=== PATIENT | male | born 1965 | race Caucasian/White ===

== ENCOUNTER 2018-03-04 22:59 | Inpatient (IN) ==
[2018-03-05] MEDS ORDERED: Naloxone 0.4 MG/ML INJ IVP PRN (02:36)
[2018-03-05] MEDS ORDERED: *HR* Heparin 5,000 UNIT/ML VIAL IVP PRN (02:54)
[2018-03-05] MEDS ORDERED: *HR* Heparin 5,000 UNIT/ML VIAL IVP ONE (02:54)
--- NOTE | 2018-03-05 03:15 | Internal Med History&Physical ---
<Ric Mederos - Last Filed: 03/05/18 05:58> Date of Encounter: 03/05/18 Internal Medicine - H&P: HPI History of present illness: Mr. Ontiveros is a 52 year old male Internal Medicine - H&P: Meds Amlodipine Besylate 10 mg PO DAILY 09/15/17 [History] Aspirin 81 mg PO DAILY 09/15/17 [History] Atorvastatin [Lipitor] 40 mg PO HS 09/15/17 [History] Clopidogrel Bisulfate [Plavix] 75 mg PO DAILY #30 tablet 09/15/17 [Rx] Cyclobenzaprine HCl 10 mg PO HS 09/15/17 [History] Diltiazem CD (24hr) [Cardizem CD] 120 mg PO DAILY 09/15/17 [History] Ergocalciferol (VITAMIN D2) [Vitamin D2] 50,000 unit PO QWEEK 09/15/17 [History] Ezetimibe [Zetia] 10 mg PO DAILY 09/15/17 [History] Gabapentin [Neurontin] 300 mg PO BID 09/15/17 [History] Insulin DETEMIR [Levemir] 50 unit BID 09/15/17 [History] Insulin Lispro Protamin/Lispro [Humalog Mix 75-25 Vial] 50 unit SQ TIDWM 09/15/17 [History] Lisinopril [Zestril] 40 mg PO DAILY 09/15/17 [History] Meloxicam [Mobic] 15 mg PO DAILY 09/15/17 [History] Metformin HCl 1,000 mg PO BID 09/15/17 [History] hydrALAZINE [HydrALAZINE] 25 mg PO Q8HR 09/15/17 [History] Allergy/AdvReac Type Severity Reaction Status Date / Time No Known Allergies Allergy Verified 03/04/15 11:56 All Systems PM: A 10-system review of systems was performed and is negative for pertinent findings except as documented above in the HPI. - Constitutional Vitals: Temp Pulse Resp BP Pulse Ox 98.6 F 60 12 133/72 92 03/05/18 04:34 03/05/18 05:00 03/05/18 05:00 03/05/18 05:00 03/05/18 05:00 Internal Med - H&P Results - Labs CBC & Chem 7: 03/05/18 03:33 03/05/18 03:33 Labs: Short CBC 03/05/18 Range/Units 03:33 WBC 8.4 (4.3-11.1) K/mcL Hgb 15.2 (12.9-16.9) g/dL Hct 47.7 (37.5-50.1) % Plt Count 212 (140-400) K/mcL Neutrophils # 5.5 (1.6-8.9) K/mcL BMP 03/05/18 03:33 Sodium 136 Potassium 3.5 Chloride 100 Carbon Dioxide 26 BUN 12 Creatinine 0.56 L Glucose 238 H Calcium 9.6 Cardiac Enzymes 03/05/18 Range/Units 03:33 Troponin I 1.40 H* (< 0.04) ng/mL - Time Spent With Patient Total time spent is greater than 50% in coordination of care (as documented) at patient's floor/unit and/or counseling patient: - Attending Attestation I performed a history and physical examination of the patient and discussed the case with the resident. I reviewed the resident's note and agree with the documented findings and plan of care. <Tejas Garrison - Last Filed: 03/05/18 06:06> Date of Encounter: 03/05/18 Time of Encounter: 03:10 Internal Medicine - H&P: HPI Chief complaint: Chest pain Admitted From: Hospital to Hospital Transfer Plans for Post Hospital Care: Home History of present illness: Mr. Ontiveros is a 52 year old male with history of diabetes, hyperlipidemia, hy pertension, CAD status post stent in September 2017 who presents from [facility] [place] due to chest pain. 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 The pain was substernal in location and he described as a pressure. The pain was approximately 6/10 in intensity, and it was nonradiating. Nothing seemed to make the pain any better and nothing seemed to make the pain any worse. It was not exacerbated by exertion. It was not associated with any shortness of breath, diaphoresis, nausea or vomiting. He did have continuous pain for approximately 2 hours until he was able to receive a nitroglycerin from the ER and [place] at which time the pain subsided and has not returned. Significantly, the patient does have history of [place] requiring stent in 09/2017, however he says that this experience does not feel anything like that. He says at that time he did have hypertension, however not really have any chest pain at that time. His review of systems was otherwise negative. At this time his pain has completely resolved and he is resting comfortably. At [facility] [place], the patient did have labs which demonstrated serum sodium 138, potassium 4.1, chloride 100, bicarbonate 31, WN 13, serum creatinine 0.84, blood glucose 315. CBC demonstrated WBC 7.8, hemoglobin 15.2, hematocrit 48.4, platelets 200. He had an EKG which generally did not demonstrate any evidence of acute myocardial ischemia. Troponins were trended initially and were 0.09 followed by 0.54. He did have an elevated blood pressure with a systolic blood pressure greater than 200 and was placed on a Cardene drip along with a heparin drip for ACS, and the patient was transferred to the ICU at [place] for further workup and management. Social History: Patient lives with his and his 24-year-old son. 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 Denies tobacco abuse denies alcohol use denies drug use. He drinks 2 cups of coffee a day. He says that his diet is probably not as good as it should be and he denies exercising. Surgical History: Cholecystectomy, PCI Family History: Dad (D) DM, CVD/CABG. Mom (D) DM Past Med Surg Social Fam HX - Past Medical History Medical history: arthritis, diabetes, hyperlipidemia, hypertension Psychiatric history: no psych history - Past Surgical History Surgical History: cholecystectomy - Social History Smoking Status: Never smoker Smokeless Tobacco Status: No Alcohol use: none Drug use: none All Systems PM: A 10-system review of systems was performed and is negative for pertinent findings except as documented above in the HPI. Review of systems: Constitutional: Denies fevers, chills, weight loss, generalized fatigue Head/Neck: Denies PATRICIA, neck stiffness EENT: Denies vision changes/blurriness, rhinorrhea, congestion, sore throat CVS: Denies palpitations, MEIER, orthopnea, edema, PND. Admits to Chest pains as above Pulm: Denies SOB, cough, sputum, hemoptysis, wheezing GI: Denies abdominal pain, nausea, vomiting, diarrhea, constipation, melena, hematemasis : Denies dysuria, increased frequency, urgency, hematuria Heme: Denies ease of bleeding or bruising MSK: Denies joint pain, limited ROM Skin: Denies rashes, ulcers, color changes Neuro: Denies PATRICIA, paresthesias, focal deficits, ataxia - Constitutional Vitals: Temp Pulse Resp BP Pulse Ox 98.3 F 79 16 165/94 96 03/05/18 01:31 03/05/18 03:00 03/05/18 03:00 03/05/18 03:00 03/05/18 03:00 Exam: Gen: Vitals noted. No acute distress. Obese appearing man. Eyes: anicteric sclerae, moist conjunctivae; no lid-lag; Pupils equal and re active to light HENT: Atraumatic; oropharynx clear with moist mucous membranes and no mucosal ulcerations; normal hard and soft palate Neck: Trachea midline; supple, no thyromegaly or lymphadenopathy Cardiac: RRR, no murmur, +S1/S2 Pulmonary: CTA bilaterally, no wheezes, rales or rhonchi, equal chest expansion Abdomen: soft, nontender, no guarding. No masses or hepatosplenomegaly MSK: ROM intact, no joint swelling noted Extremities: no BLE edema, nontender calf, no cyanosis or clubbing. Skin: Normal temperature, turgor and texture; ulcers or subcutaneous nodules. There is no hair appearing on the patient's lower extremity and evidence of early stasis ulceration. Neuro: moves all extremities, no focal deficits. Psych: Appropriate mood and behavior. A&Ox3 Internal Med - H&P Results - Labs CBC & Chem 7: 03/05/18 03:33 03/05/18 03:33 - Assessment and plan (1) NSTEMI (non-ST elevated myocardial infarction) Current Visit: Yes Status: Acute Assessment and plan: Chest pain at rest, relieved by nitroglycerin Secondary to NSTEMI, HEART Score 6-7 Patient does have history of CAD status post PCI with stent 09/20 EKG negative for acute ischemic changes, troponin 0.09 -> 0.54 Additionally, patient presented with hypertensive urgency/emergency Given recent history of cardiac event, we will admit for ACS Patient received ASA and was started on heparin drip We will maintain NPO, repeat EKG in AM New TTE in AM Cardio consult in AM (2) CAD (coronary artery disease) Current Visit: Yes Status: Acute Assessment and plan: CAD s/p PCI with stent to L PDA 09/20 Multiple risk factors including HTN, Uncontrolled DM, HLD, Prior CAD Home meds meds include ASA, Lipitor, LELAND Inh, Plavix We will continue to aggressively control risk factors Consult cardiology as above Qualifiers: Coronary Disease-Associated Artery/Lesion type: [place] artery [place] vs. transplanted heart: [place] heart Associated angina: with unstable angina Qualified Code(s): I25.110 - Atherosclerotic heart disease of [place] coronary artery with unstable angina pectoris (3) Hypertensive urgency Current Visit: Yes Status: Acute Assessment and plan: Hypertensive urgency, SBP >220 at [place] Patient says that he is compliant with medications He does have small bump in troponin, which I suspect may be more related to cardiac ischemia We will continue cardene drip for now, goal SBP 140-160 (4) Diabetes Current Visit: Yes Status: Acute Assessment and plan: DM2 with hyperglycemia, poorly controlled jail use of high dose insulin, appears to have high insulin resistance I will start the patient on q6h accuchecks while NPO He takes 50u Long acting insulin BID at home, I will give 30U BID for now Medium dose sliding scale insulin q6h Qualifiers: Diabetes mellitus type: type 2 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
[2018-03-05] MEDS ORDERED: D5% in Water 1,000 ML IVC PRN (03:16)
[2018-03-05] MEDS ORDERED: Dextrose Gel 15 GM/37.5 ML TUBE PO PRN ×2 (03:16)
[2018-03-05] MEDS ORDERED: *HR* Dextrose 50 % in Water (Syg) 50 ML SYRINGE IVP PRN (03:16)
[2018-03-05 04:02] LABS: Basophils % 0.4 %; Eosinophils # 0.2 K/mcL (0.0-0.6); Eosinophils % 2.4 %; Hematocrit 47.7 % (37.5-50.1); Hemoglobin 15.2 g/dL (12.9-16.9); Immature Granulocytes % 0.2 % (0-4); Lymphocytes % 24.3 %; Mean Corpuscular HGB Conc 31.9 g/dL (31.6-35.5); Mean Corpuscular Hemoglobin 25.3 pg (28.0-33.3); Mean Corpuscular Volume 79.4 fL (83.0-100.0); Mean Platelet Volume 12.3 fL (9.4-12.4); Monocytes # 0.6 K/mcL (0.0-1.3); Monocytes % 7.1 %; Neutrophils # 5.5 K/mcL (1.6-8.9); Platelet Count 212 K/mcL (140-400); Red Blood Count 6.01 M/mcL (4.19-5.50); Red Cell Distribution Width 15.3 % (11.5-14.5); Segmented Neutrophils % 65.6 %
[2018-03-05 04:10] LABS: Prothrombin Time 11.3 Seconds (9.4-12.1)
[2018-03-05 04:14] LABS: BUN/Creatinine Ratio 21 (6-26); Blood Urea Nitrogen 12 mg/dL (6-20); Calcium 9.6 mg/dL (8.6-10.3); Carbon Dioxide 26 mEq/L (23-29); Chloride 100 mEq/L (98-107); Chol/HDL Ratio 2.9 (0-4.9); Cholesterol 112 mg/dL (< 200); Glucose 238 mg/dL (70-105); HDL Cholesterol 39 mg/dL (40-59); LDL Cholesterol,Calculated 31 mg/dL (0-99); Magnesium 1.4 mg/dL (1.6-2.6); Osmolality,Calculated 290 (280-300); Potassium 3.5 mEq/L (3.5-5.1); Sodium 136 mEq/L (136-145); Triglycerides 212 mg/dL (< 150); eGFR For Non-African Americans > 60 (> 60)
[2018-03-05] MEDS: niCARdipine 40 MG/200 ML MLS IVC SCH ×2 (04:28→12:10)
[2018-03-05] MEDS: Heparin 25,000 UNIT/500 ML D5W 25,000 UNIT/500 ML BAG IVC SCH ×2 (04:30→18:57)
[2018-03-05] MEDS ORDERED: Insulin LISPRO 300 UNITS/3 ML VIAL SQ SCH ×2 (06:00)
[2018-03-05] MEDS: hydrALAZINE 25 MG TABLET PO SCH ×3 (06:03→20:58)
[2018-03-05] MEDS ORDERED: Perflutren Lipid Microsphere 1.3 ML in 0.9 % Sodium Chloride 8.7 ML IVP ONE (07:23)
[2018-03-05 07:24] LABS: Estimated Average Glucose 235 mg/dl; Hemoglobin A1C 9.8 %
--- NOTE | 2018-03-05 08:14 | Cardiology Consult Note ---
<Junaid Galarza - Last Filed: 03/05/18 08:54> Date of Encounter: 03/05/18 Time of Encounter: 08:15 Assessment and Plan (1) Hypertensive urgency Current Visit: Yes Status: Acute Per Cardiology: Systolic blood pressures in the 180s initially. Currently on IV Cardene drip and systolic blood pressures in the 140s. On Norvasc and Cardizem, not sure why on two calcium channel blockers, will discontinue Cardizem and add Lopressor 50 mg by mouth twice a day. Also on LELAND inhibitor and hydralazine. Will attempt to wean off IV Cardene drip. (2) NSTEMI (non-ST elevated myocardial infarction) Current Visit: Yes Status: Acute Per Cardiology: Known history of CAD with catheterization September 2017: Lesion Findings/Interventions * Left Main Coronary Artery The LMCA is angiographically free of disease. * Left Anterior Descending There is a 20-30% stenosis in the Proximal LAD, mid LAD 40-50% * Circumflex There is a 20% stenosis in the 1st Marginal. There is a 28 mm long, 80-90% stenosis in the Left PDA. The lesion has a KEYANNA flow of 3. An intervention was performed on the Left PDA with a final stenosis of 0%. There were no lesion complications. The final KEYANNA flow was 3. * Right Coronary Artery The Right Coronary Artery is small and diffusely diseased. Troponin noted to be 1.40. Currently chest pain-free. Current echo pending. Discussed and reviewed with Dr. Rose, plan for left heart catheterization 03/07/2018. On aspirin, Plavix, statin, LELAND inhibitor, IV heparin drip, will add beta lilli. Cardiac rehabilitation consult placed. Discussion w patient/family: The assessment and plan as outlined above was discussed with the patient who expressed understanding and agreement. All questions were answered. Thank you for involving us in the care of your patient. Please call with any questions. History of Present Illness Consult date: 03/05/18 Requesting physician: Tejas Garrison Consult reason: CP, NSTEMI Chief complaint: CP History of present illness: Mr. Ontiveros is a 52 year old male with history of diabetes, hyperlipidemia, hypertension, CAD status post stent in September 2017. Cardiology consult for chest pain and elevated troponin. Patient reports clinically stable until yesterday evening. He reports he developed midsternal epigastric chest burning while on his way home. He reports symptoms lasted for a few hours eventually subsided with rest and SL nitroglycerin pill with EMS. He denied any other accompanying symptoms. Currently chest pain-free. Denies any dyspnea on exertion or fatigue or chest pain symptoms over the past few weeks. Has not utilize nitroglycerin pills at home-- actually reports he does not have any. He denies any palpitations, dizziness, syncope, falls. Denies any active bleeding or blood loss. Denies any recent infectious process. Reports compliance with medications. Past Med Surg Social Fam HX - Past Medical History Attestation: Yes The following information was validated with the patient. Source: patient, old records reviewed Medical history: arthritis, diabetes, hyperlipidemia, hypertension Psychiatric history: no psych history - Past Surgical History Surgical History: cholecystectomy - Social History Smoking Status: Never smoker Smokeless Tobacco Status: No Alcohol use: none Drug use: none Medications and Allergies Amlodipine Besylate 10 mg PO DAILY 09/15/17 [History] Aspirin 81 mg PO DAILY 09/15/17 [History] Atorvastatin [Lipitor] 40 mg PO HS 09/15/17 [History] Clopidogrel Bisulfate [Plavix] 75 mg PO DAILY #30 tablet 09/15/17 [Rx] Cyclobenzaprine HCl 10 mg PO HS 09/15/17 [History] Diltiazem CD (24hr) [Cardizem CD] 120 mg PO DAILY 09/15/17 [History] Ergocalciferol (VITAMIN D2) [Vitamin D2] 50,000 unit PO QWEEK 09/15/17 [History] Ezetimibe [Zetia] 10 mg PO DAILY 09/15/17 [History] Gabapentin [Neurontin] 300 mg PO BID 09/15/17 [History] Insulin DETEMIR [Levemir] 50 unit BID 09/15/17 [History] Insulin Lispro Protamin/Lispro [Humalog Mix 75-25 Vial] 50 unit SQ TIDWM 09/15/17 [History] Lisinopril [Zestril] 40 mg PO DAILY 09/15/17 [History] Meloxicam [Mobic] 15 mg PO DAILY 09/15/17 [History] Metformin HCl 1,000 mg PO BID 09/15/17 [History] hydrALAZINE [HydrALAZINE] 25 mg PO Q8HR 09/15/17 [History] Allergy/AdvReac Type Severity Reaction Status Date / Time No Known Allergies Allergy Verified 03/04/15 11:56 All Systems Review: The remainder of the systems were reviewed and are negative - Cardiovascular Cardiovascular: as per HPI, chest pain at rest, chest pain with exertion Physical Examination Vital Signs, Last 4 Hours Temp Pulse Resp BP Pulse Ox 03/05/18 08:00 69 16 144/77 96 03/05/18 07:00 97.9 F 03/05/18 05:58 65 12 142/70 93 03/05/18 05:00 60 12 133/72 92 03/05/18 04:34 98.6 F General: Conversant, No Apparent Distress HEENT: Atraumatic, Normocephaly, Mucus Membranes Moist Neck: No JVD, Normal carotid pulses Cardiac: Reg Rate and Rhythm, Normal S1 and S2, No Murmur Lungs: Normal Breath Sounds, No Wheeze, Rales, Rhonchi Neuro: Alert and responsive, No focal deficits noted Abdomen: Soft, Non-Tender Skin: No rashes noted on visualized skin Musculoskeletal: No Chest Wall Tenderness Extremities: No Clubbing, No Cyanosis, No Edema, Normal Pulses Results 03/05/18 03:33 03/05/18 03:33 Lab Results Laboratory Tests 03/05/18 03/05/18 03/05/18 03:33 03:33 03:33 Hgb 15.2 Hct 47.7 INR 1.0 Creatinine Est GFR (Non-Af Amer) Hemoglobin A1c Magnesium Troponin I 1.40 H* LDL Cholesterol, Calc 03/05/18 03/05/18 03:33 03:33 Hgb Hct INR Creatinine 0.56 L Est GFR (Non-Af Amer) > 60 Hemoglobin A1c 9.8 H Magnesium 1.4 L Troponin I LDL Cholesterol, Calc 31 Active Medications Amlodipine Besylate (Norvasc) 10 mg PO DAILY HEIDY Stop: 09/04/18 09:01 Aspirin (Aspirin) 81 mg PO DAILY HEIDY Stop: 09/04/18 09:01 Atorvastatin Calcium (Lipitor) 40 mg PO HS HEIDY Stop: 09/04/18 21:01 Clopidogrel Bisulfate (Plavix) 75 mg PO DAILY HEIDY Stop: 09/04/18 09:01 Cyclobenzaprine HCl (Flexeril) 10 mg PO HS HEIDY Stop: 09/04/18 21:01 Dextrose/Water (Dextrose 50% (Syg)) 25 ml IVP AD PRN PRN Reason: Hypoglycemia Stop: 09/04/18 03:17 Diltiazem HCl (Cardizem Cd) 120 mg PO DAILY [facility] Stop: 09/04/18 09:01 Gabapentin (Neurontin) 300 mg PO BID [facility] Stop: 09/04/18 09:01 Glucagon (Glucagen) 1 mg IM ONCE PRN PRN Reason: Hypoglycemia Stop: 09/04/18 03:17 Glucose (Gluctose) 15 gm PO ONCE PRN PRN Reason: Hypoglycemia Stop: 09/04/18 03:17 Glucose (Gluctose) 30 gm PO ONCE PRN PRN Reason: Hypoglycemia Stop: 09/04/18 03:17 Heparin Sodium (Porcine) (Heparin) 4,000 unit IVP Q6HR PRN PRN Reason: SEE COMMENTS Stop: 09/04/18 02:55 Last Admin: 03/05/18 04:32 Dose: 4,000 unit Heparin Sodium (Porcine) (Heparin) 2,000 unit IVP Q6H PRN PRN Reason: SEE COMMENTS Stop: 09/04/18 02:55 Hydralazine HCl (Hydralazine) 25 mg PO Q8H HEIDY Stop: 09/04/18 06:01 Last Admin: 03/05/18 06:03 Dose: 25 mg Heparin Sodium/Dextrose (Heparin 25,000 Unit/500 Ml D5w) 25,000 unit in 500 mls @ 20.084 mls/hr IVC .Q24H [facility]; Protocol Stop: 09/04/18 03:01 Last Admin: 03/05/18 04:30 Dose: 10.37 unit/kg/hr, 30.4 mls/hr Dextrose (Dextrose 5%) 1,000 mls @ 100 mls/hr IVC .Q10H PRN PRN Reason: HYPOGLYCEMIA Stop: 09/04/18 03:17 Nicardipine HCl (Cardene Premix 40mg/200ml) 40 mg in 200 mls @ 25 mls/hr IVC .Q8H [facility]; Protocol Stop: 09/04/18 03:31 Last Admin: 03/05/18 04:28 Dose: 5 mg/hr, 25 mls/hr Insulin Detemir (Levemir) 30 unit SQ BID [facility] Stop: 09/04/18 09:01 Insulin Human Lispro (Humalog) 0 units SQ Q6HR [facility]; Protocol Stop: 09/04/18 06:01 Last Admin: 03/05/18 06:03 Dose: 10 units Lisinopril (Zestril) 40 mg PO DAILY [facility] Stop: 09/04/18 09:01 Naloxone HCl (Narcan) 0.4 mg IVP Q2MIN PRN PRN Reason: SEE COMMENTS Stop: 09/04/18 02:37 Zetia 10mg 1 mg PO DAILY [facility] Stop: 09/04/18 09:01 - Imaging and Cardiology Echo: report reviewed Cardiac cath: report reviewed - EKG Interpretation EKG results cardiology: personally reviewed, normal ECG, sinus rhythm Consult Discharge Plan - Plan Referrals: NONE,PCP [Primary Care Provider] - <Kamini Rose - Last Filed: 03/05/18 09:57> Date of Encounter: 03/05/18 - Attending Attestation I examined this patient and my medical decision-making was reviewed with the [employer]. I agree with the documented findings, disposition and treatment plan as described. Mr. Ontiveros presents with NSTEMI. Has known CAD and PCI earlier this year. Denies missing doses of DAPT. Discussed proceeding with [facility] - R/B/A reviewed in detail with the patient. He expressed understanding of the risks and has decided to proceed. He is chest pain free. Trend troponin. Plan for [facility] Wednesday. Continue heparin gtt, asa, plavix, statin. Assessment and Plan Discussion w patient/family: The assessment and plan as outlined above was discussed with the patient and/or family members who expressed understanding and agreement. All questions were answered. Thank you for involving us in the care of your patient. Please call with any questions. History of Present Illness History of present illness: Mr. Ontiveros is a 52 year old male All Systems Review: The remainder of the systems were reviewed and are negative Physical Examination Vital Signs, Last 4 Hours Temp Pulse Resp BP Pulse Ox 03/05/18 08:00 69 16 144/77 96 03/05/18 07:00 97.9 F 03/05/18 05:58 65 12 142/70 93 Results 03/05/18 03:33 03/05/18 03:33 Lab Results 03/05/18 03/05/18 03/05/18 03:33 03:33 03:33 WBC 8.4 Hgb 15.2 Hct 47.7 Plt Count 212 INR 1.0 APTT 38.0 H Sodium Potassium Chloride Carbon Dioxide BUN Creatinine Glucose Calcium Magnesium Troponin I 1.40 H* B-Natriuretic Peptide 03/05/18 03/05/18 03:33 03:33 WBC Hgb Hct Plt Count INR APTT Sodium 136 Potassium 3.5 Chloride 100 Carbon Dioxide 26 BUN 12 Creatinine 0.56 L Glucose 238 H Calcium 9.6 Magnesium 1.4 L Troponin I B-Natriuretic Peptide 57
[2018-03-05] MEDS ORDERED: Diltiazem CD (24hr) 120 MG CAPSULE PO SCH (09:00)
[2018-03-05] MEDS ORDERED: Insulin DETEMIR 100 UNIT/ML X5UNITS SQ SCH (09:00)
[2018-03-05] MEDS ORDERED: amLODIPine 5 MG TABLET PO SCH (09:00)
--- NOTE | 2018-03-05 09:31 | Event Note ---
Date of Encounter: 03/05/18 Time of Encounter: 09:15 Mr Ontiveros was admitted today. PMHx DM, HTN, HLD, CAD s/p stent September 2017 Presented from [facility] with chest pain where he had ekg without acute ischemic changes, trop that has uptrended to 0.54 and where he had elevated bps with sbp >200. He was started on heparin gtt and caredene gtt and transferred to [facility] for further work up and treatment. awake, alert and in no pain. no further cp, pressure, neck pain. denies back, neck, jaw pain, palpitations, sob, n/v, no abd pain. no mora, vision changes or numbness/tingling/weakness with high bps gen- alert, awake,appears stated age eyes- pupils equal round cv- reg rate and rhythm, normal s1,s2, no murmurs appreciated, no jvd, no le edema lungs- ctabl, no wheezing, rhonchi or crackles, normal resp effort abd- soft, non tender, non distended, + bs neuro- AAOx3, CN grossly intact NSTEMI CAD Hx s/p PCI September 2017 HTN Emergency -asa, statin, zetia, plavix, hep gtt -hydralazine, lisinopril. metoprolol - hold home norvasc cardizem- on cardene gtt -wean gtt and when off can cont norvasc, kavitha has stopped cardizem and added BB -cards following--[facility] 03/07 -echo pending -cardiac rehab consult placed by kavitha DM -npo with q6h checks, receiving 30 unit BID long acting inuslin (with home dose 50 units BID) while npo, prn hypoglycemics and SSI, cont gabapentin -kavitha has approved for diet--change to TIDAC HS accu checks and SSI, resume home levemir dosing vte ppx on hep gtt
[2018-03-05] MEDS: Aspirin 81 MG TAB.CHEW PO SCH (10:48)
[2018-03-05] MEDS: Gabapentin 300 MG CAPSULE PO SCH ×2 (10:48→20:58)
[2018-03-05] MEDS: Lisinopril 20 MG TABLET PO SCH (10:48)
[2018-03-05] MEDS: ZETIA 10MG PO SCH (10:50)
[2018-03-05] MEDS: Insulin LISPRO 300 UNITS/3 ML VIAL SQ SCH ×3 (12:11→20:57)
[2018-03-05] MEDS: *HR* Heparin 5,000 UNIT/ML VIAL IVP PRN ×2 (12:12→20:57)
[2018-03-05] MEDS: Insulin DETEMIR 100 UNIT/ML X5UNITS SQ SCH (21:00)
[2018-03-06] MEDS: niCARdipine 40 MG/200 ML MLS IVC SCH (02:06)
[2018-03-06 04:55] LABS: Basophils # 0.1 K/mcL (0.0-0.2); Basophils % 0.6 %; Eosinophils # 0.2 K/mcL (0.0-0.6); Eosinophils % 2.7 %; Hematocrit 47.9 % (37.5-50.1); Hemoglobin 15.1 g/dL (12.9-16.9); Immature Granulocytes % 0.1 % (0-4); Lymphocytes # 1.8 K/mcL (0.6-4.6); Lymphocytes % 21.3 %; Mean Corpuscular HGB Conc 31.5 g/dL (31.6-35.5); Mean Corpuscular Hemoglobin 25.3 pg (28.0-33.3); Mean Corpuscular Volume 80.2 fL (83.0-100.0); Monocytes # 0.6 K/mcL (0.0-1.3); Monocytes % 6.7 %; Neutrophils # 5.8 K/mcL (1.6-8.9); Platelet Count 221 K/mcL (140-400); Red Blood Count 5.97 M/mcL (4.19-5.50); Red Cell Distribution Width 15.2 % (11.5-14.5); Segmented Neutrophils % 68.6 %
[2018-03-06 05:14] LABS: BUN/Creatinine Ratio 25 (6-26); Blood Urea Nitrogen 15 mg/dL (6-20); Calcium 8.7 mg/dL (8.6-10.3); Carbon Dioxide 25 mEq/L (23-29); Chloride 101 mEq/L (98-107); Glucose 252 mg/dL (70-105); Magnesium 1.6 mg/dL (1.6-2.6); Osmolality,Calculated 287 (280-300); Sodium 134 mEq/L (136-145); eGFR For Non-African Americans > 60 (> 60)
[2018-03-06 05:16] LABS: Troponin I 0.37 ng/mL (< 0.04)
[2018-03-06] MEDS: hydrALAZINE 25 MG TABLET PO SCH ×3 (06:09→21:48)
[2018-03-06] MEDS: ZETIA 10MG PO SCH (07:29)
[2018-03-06] MEDS ORDERED: hydrALAZINE 25 MG TABLET PO ONE (08:17)
--- NOTE | 2018-03-06 08:18 | Cardiology Progress Note ---
Date of Encounter: 03/06/18 Time of Encounter: 08:15 Assessment and Plan (1) Hypertensive urgency Current Visit: Yes Status: Acute Per Cardiology: Systolic blood better controlled, current;y 150's - 170's. On Norvasc, beta lilli, LELAND inhibitor, and hydralazine. Average heart rate on telemetry past 12 hours 57. We will titrate hydralazine. (2) NSTEMI (non-ST elevated myocardial infarction) Current Visit: Yes Status: Acute Per Cardiology: Known history of CAD with catheterization September 2017: Lesion Findings/Interventions * Left Main Coronary Artery The LMCA is angiographically free of disease. * Left Anterior Descending There is a 20-30% stenosis in the Proximal LAD, mid LAD 40-50% * Circumflex There is a 20% stenosis in the 1st Marginal. There is a 28 mm long, 80-90% stenosis in the Left PDA. The lesion has a KEYANNA flow of 3. An intervention was performed on the Left PDA with a final stenosis of 0%. There were no lesion complications. The final KEYANNA flow was 3. * Right Coronary Artery The Right Coronary Artery is small and diffusely diseased. Troponin peak 1.40-- now downward trend. Currently chest pain-free. Echo showed preserved EF. Discussed and reviewed with Dr. Rose, plan for left heart catheterization 03/07/2018. On aspirin, Plavix, statin, LELAND inhibitor, IV heparin drip, beta lilli. Discussion w patient/family: The assessment and plan as outlined above was discussed with the patient who expressed understanding and agreement. All questions were answered. Thank you for involving us in the care of your patient. Please call with any questions. Subjective Principal diagnosis: NSTEMI Interval history: Denies any chest pain, shortness of breath, palpitations. Denies any active bleeding or blood loss. No concerns or complaints today. Objective Vital Signs, Last 4 Hours Temp Pulse Resp BP Pulse Ox 03/06/18 07:48 98.0 F 61 18 150/85 97 03/06/18 06:10 173/94 03/06/18 04:50 56 General: Conversant, No Apparent Distress HEENT: Atraumatic, Normocephaly, Mucus Membranes Moist Neck: No JVD, Normal carotid pulses Cardiac: Reg Rate and Rhythm, Normal S1 and S2, No Murmur Lungs: Normal Breath Sounds, No Wheeze, Rales, Rhonchi Neuro: Alert and responsive, No focal deficits noted Abdomen: Soft, Non-Tender Skin: No rashes noted on visualized skin Musculoskeletal: No Chest Wall Tenderness Extremities: No Clubbing, No Cyanosis, No Edema, Normal Pulses Results 03/06/18 04:21 03/06/18 04:21 Lab Results Laboratory Tests 03/05/18 03/05/18 03/06/18 03:33 09:25 04:21 Troponin I 1.40 H* 0.93 H* 0.37 H* Impressions Echocardiogram 03/05/18 06:04 Impressions: LVEF 60-65%. Mild concentric left ventricular hypertrophy. Indeterminate diastolic function. Definity echo contrast was used. Normal right ventricular structure and function. No significant valvular dysfunction. No pulmonary hypertension. Left Ventricular Wall Motion: Rest Echo Findings All wall segments showed normal motion. Findings: Study Quality * Technically challenging due to body habitus. ECG Findings * Normal sinus rhythm. Left Ventricle * LVEF 60-65%. * Mild concentric left ventricular hypertrophy. * Indeterminate diastolic function. * Definity echo contrast was used. Right Ventricle * Normal right ventricular structure and function. Left Atrium * Normal left atrial size. Right Atrium * Normal right atrial size. Aortic Valve * No aortic regurgitation. * Aortic valve not well visualized. * No aortic stenosis. Mitral Valve * No mitral regurgitation. * No mitral stenosis. * Mitral valve not well visualized. Tricuspid Valve * Tricuspid valve not well visualized. * No tricuspid regurgitation. * Estimated RA pressure is 3 mmHg. Pulmonic Valve * Pulmonic valve is not well visualized. * No pulmonic stenosis. * No pulmonic regurgitation. Pulmonary Artery * Pulmonary artery not well visualized. Aorta * Normally sized aortic root. Pericardium * There is no pericardial effusion present. Interatrial Septum * No evidence of PFO by color Doppler. IVC * The IVC is not dilated. Active Medications Aspirin (Aspirin) 81 mg PO DAILY [facility] Stop: 09/04/18 09:01 Last Admin: 03/05/18 10:48 Dose: 81 mg Atorvastatin Calcium (Lipitor) 40 mg PO HS [facility] Stop: 09/04/18 21:01 Last Admin: 03/05/18 20:58 Dose: 40 mg Clopidogrel Bisulfate (Plavix) 75 mg PO DAILY [facility] Stop: 09/04/18 09:01 Last Admin: 03/05/18 10:49 Dose: 75 mg Cyclobenzaprine HCl (Flexeril) 10 mg PO HS [facility] Stop: 09/04/18 21:01 Last Admin: 03/05/18 20:58 Dose: 10 mg Dextrose/Water (Dextrose 50% (Syg)) 25 ml IVP AD PRN PRN Reason: Hypoglycemia Stop: 09/04/18 03:17 Gabapentin (Neurontin) 300 mg PO BID [facility] Stop: 09/04/18 09:01 Last Admin: 03/05/18 20:58 Dose: 300 mg Glucagon (Glucagen) 1 mg IM ONCE PRN PRN Reason: Hypoglycemia Stop: 09/04/18 03:17 Glucose (Gluctose) 15 gm PO ONCE PRN PRN Reason: Hypoglycemia Stop: 09/04/18 03:17 Glucose (Gluctose) 30 gm PO ONCE PRN PRN Reason: Hypoglycemia Stop: 09/04/18 03:17 Heparin Sodium (Porcine) (Heparin) 4,000 unit IVP Q6HR PRN PRN Reason: SEE COMMENTS Stop: 09/04/18 02:55 Last Admin: 03/05/18 04:32 Dose: 4,000 unit Heparin Sodium (Porcine) (Heparin) 2,000 unit IVP Q6H PRN PRN Reason: SEE COMMENTS Stop: 09/04/18 02:55 Last Admin: 03/05/18 20:57 Dose: 2,000 unit Hydralazine HCl (Hydralazine) 25 mg PO Q8H [facility] Stop: 09/04/18 06:01 Last Admin: 03/06/18 06:09 Dose: 25 mg Heparin Sodium/Dextrose (Heparin 25,000 Unit/500 Ml D5w) 25,000 unit in 500 mls @ 20.084 mls/hr IVC .Q24H [facility]; Protocol Stop: 09/04/18 03:01 Last Titration: 03/06/18 05:08 Dose: 14.15 unit/kg/hr, 41.5 mls/hr Dextrose (Dextrose 5%) 1,000 mls @ 100 mls/hr IVC .Q10H PRN PRN Reason: HYPOGLYCEMIA Stop: 09/04/18 03:17 Nicardipine HCl (Cardene Premix 40mg/200ml) 40 mg in 200 mls @ 25 mls/hr IVC .Q8H [facility]Y; Protocol Stop: 09/04/18 03:31 Last Admin: 03/06/18 02:06 Dose: 2.5 mg/hr, 12.5 mls/hr Insulin Detemir (Levemir) 50 unit SQ BID [facility] Stop: 09/04/18 21:01 Last Admin: 03/05/18 21:00 Dose: 50 unit Insulin Human Lispro (Humalog) 0 units SQ TIDAC [facility]; Protocol Stop: 09/04/18 11:31 Last Admin: 03/05/18 17:10 Dose: 8 units Insulin Human Lispro (Humalog) 0 units SQ HS [facility]; Protocol Stop: 09/04/18 21:01 Last Admin: 03/05/18 20:57 Dose: 3 units Lisinopril (Zestril) 40 mg PO DAILY [facility] Stop: 09/04/18 09:01 Last Admin: 03/05/18 10:48 Dose: 40 mg Metoprolol Tartrate (Lopressor) 50 mg PO BID [facility] Stop: 09/04/18 09:01 Last Admin: 03/05/18 20:58 Dose: 50 mg Naloxone HCl (Narcan) 0.4 mg IVP Q2MIN PRN PRN Reason: SEE COMMENTS Stop: 09/04/18 02:37 Zetia 10mg 1 mg PO DAILY [facility] Stop: 09/04/18 09:01 Last Admin: 03/06/18 07:29 Dose: Not Given - Imaging and Cardiology Echo: report reviewed Cardiac cath: pending Consult Discharge Plan - Plan Referrals: NONE,PCP [Primary Care Provider] -
[2018-03-06] MEDS: Gabapentin 300 MG CAPSULE PO SCH ×2 (08:27→20:02)
[2018-03-06] MEDS: Insulin DETEMIR 100 UNIT/ML X5UNITS SQ SCH ×2 (08:28→20:02)
[2018-03-06] MEDS: Aspirin 81 MG TAB.CHEW PO SCH (08:28)
[2018-03-06] MEDS: Lisinopril 20 MG TABLET PO SCH (08:28)
[2018-03-06] MEDS: Insulin LISPRO 300 UNITS/3 ML VIAL SQ SCH ×4 (08:29→20:02)
--- NOTE | 2018-03-06 08:54 | Internal Med Progress Note ---
Hospitalist Progress Note - Encounter Date of Encounter: 03/06/18 Time of Encounter: 09:50 - Subjective Interval History: awake in bed, denies any cp, pressure, palpitations, sob overnight. feeling at baseline and awaiting [facility] in am - Exam Vitals: Temp Pulse Resp BP Pulse Ox 98.0 F 61 18 150/85 97 03/06/18 07:48 03/06/18 07:48 03/06/18 07:48 03/06/18 07:48 03/06/18 07:48 Exam: gen- alert, awake,appears stated age eyes- pupils equal round cv- reg rate and rhythm, normal s1,s2, no murmurs appreciated, no jvd, no le edema lungs- ctabl, no wheezing, rhonchi or crackles, normal resp effort on ra abd- soft, non tender, non distended, + bs neuro- AAOx3, CN grossly intact - Assessment and Plan (1) NSTEMI (non-ST elevated myocardial infarction) Current Visit: Yes Status: Acute Assessment and Plan: NSTEMI CAD Hx s/p PCI September 2017 -asa, statin, zetia, plavix, hep gtt -hydralazine, lisinopril. metoprolol norvasc -cards following--c 03/07, npo p mn -echo EF 60-65%, mild LVH, interminant diastolic dysfunction, no pulm htn, no valve disease -cardiac rehab consult placed by cards (2) Hypertensive urgency Current Visit: Yes Status: Resolved Assessment and Plan: -hydralazine uptitrated, lisinopril. metoprolol, norvasc -weaned off cardene gtt 03/05 -cards following--[facility] 03/07 -cont to monitor, will require outpt fu (3) CAD (coronary artery disease) Current Visit: Yes Status: Chronic Assessment and Plan: see above (4) DVT prophylaxis Current Visit: Yes Status: Acute Assessment and Plan: hep gtt (5) Diabetes Current Visit: Yes Status: Acute Assessment and Plan: home levemir 50 unts bid give 30 units tonight and tomorrow morning as will be npo p mn ssi and prn hypoglycemics - Time Spent with Patient Total time spent is greater than 50% in coordination of care (as documented) at patient's floor/unit and/or counseling patient: 25 - 35 minutes Plan of Care Discussed with: patient Internal Medicine: Result - Labs CBC & Chem 7: 03/06/18 04:21 03/06/18 04:21 Labs: Short CBC 03/06/18 Range/Units 04:21 WBC 8.5 (4.3-11.1) K/mcL Hgb 15.1 (12.9-16.9) g/dL Hct 47.9 (37.5-50.1) % Plt Count 221 (140-400) K/mcL Neutrophils # 5.8 (1.6-8.9) K/mcL BMP 03/06/18 04:21 Sodium 134 L Potassium 4.0 Chloride 101 Carbon Dioxide 25 BUN 15 Creatinine 0.59 L Glucose 252 H Calcium 8.7 Cardiac Enzymes 03/05/18 03/06/18 Range/Units 09:25 04:21 Troponin I 0.93 H* 0.37 H* (< 0.04) ng/mL - ABG Interpretation ABG results: PT/INR, D-dimer PT 11.3 Seconds (9.4-12.1) 03/05/18 03:33 - Impressions Impressions Echocardiogram 03/05/18 06:04 Impressions: LVEF 60-65%. Mild concentric left ventricular hypertrophy. Indeterminate diastolic function. Definity echo contrast was used. Normal right ventricular structure and function. No significant valvular dysfunction. No pulmonary hypertension. Left Ventricular Wall Motion: Rest Echo Findings All wall segments showed normal motion. Findings: Study Quality * Technically challenging due to body habitus. ECG Findings * Normal sinus rhythm. Left Ventricle * LVEF 60-65%. * Mild concentric left ventricular hypertrophy. * Indeterminate diastolic function. * Definity echo contrast was used. Right Ventricle * Normal right ventricular structure and function. Left Atrium * Normal left atrial size. Right Atrium * Normal right atrial size. Aortic Valve * No aortic regurgitation. * Aortic valve not well visualized. * No aortic stenosis. Mitral Valve * No mitral regurgitation. * No mitral stenosis. * Mitral valve not well visualized. Tricuspid Valve * Tricuspid valve not well visualized. * No tricuspid regurgitation. * Estimated RA pressure is 3 mmHg. Pulmonic Valve * Pulmonic valve is not well visualized. * No pulmonic stenosis. * No pulmonic regurgitation. Pulmonary Artery * Pulmonary artery not well visualized. Aorta * Normally sized aortic root. Pericardium * There is no pericardial effusion present. Interatrial Septum * No evidence of PFO by color Doppler. IVC * The IVC is not dilated. Consult Discharge Plan - Plan Referrals: NONE,PCP [Primary Care Provider] - (3) CAD (coronary artery disease) Qualifiers: Coronary Disease-Associated Artery/Lesion type: [place] artery [place] vs. 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
[2018-03-06] MEDS: Heparin 25,000 UNIT/500 ML D5W 25,000 UNIT/500 ML BAG IVC SCH ×2 (11:38→20:03)
[2018-03-07 04:41] LABS: Basophils % 0.5 %; Eosinophils # 0.2 K/mcL (0.0-0.6); Eosinophils % 2.7 %; Hematocrit 50.8 % (37.5-50.1); Hemoglobin 15.6 g/dL (12.9-16.9); Immature Granulocytes % 0.3 % (0-4); Lymphocytes # 1.9 K/mcL (0.6-4.6); Lymphocytes % 25.3 %; Mean Corpuscular HGB Conc 30.7 g/dL (31.6-35.5); Mean Corpuscular Hemoglobin 25.2 pg (28.0-33.3); Mean Corpuscular Volume 81.9 fL (83.0-100.0); Monocytes # 0.5 K/mcL (0.0-1.3); Monocytes % 6.5 %; Neutrophils # 4.8 K/mcL (1.6-8.9); Platelet Count 229 K/mcL (140-400); Red Cell Distribution Width 16.3 % (11.5-14.5); Segmented Neutrophils % 64.7 %
[2018-03-07 04:54] LABS: Heparin anti-factor XA UFH 0.27 IU/mL (0.30-0.70); Prothrombin Time 11.1 Seconds (9.4-12.1)
[2018-03-07] MEDS: hydrALAZINE 25 MG TABLET PO SCH ×3 (05:00→21:39)
[2018-03-07 05:08] LABS: BUN/Creatinine Ratio 26 (6-26); Blood Urea Nitrogen 15 mg/dL (6-20); Calcium 8.6 mg/dL (8.6-10.3); Carbon Dioxide 23 mEq/L (23-29); Chloride 103 mEq/L (98-107); Glucose 260 mg/dL (70-105); Magnesium 1.9 mg/dL (1.6-2.6); Osmolality,Calculated 288 (280-300); Potassium 3.9 mEq/L (3.5-5.1); Sodium 134 mEq/L (136-145); eGFR For Non-African Americans > 60 (> 60)
[2018-03-07] MEDS: *HR* Heparin 5,000 UNIT/ML VIAL IVP PRN (05:09)
[2018-03-07] MEDS: Heparin 25,000 UNIT/500 ML D5W 25,000 UNIT/500 ML BAG IVC SCH (07:43)
[2018-03-07] MEDS: Aspirin 81 MG TAB.CHEW PO SCH (07:50)
[2018-03-07] MEDS: Gabapentin 300 MG CAPSULE PO SCH ×2 (07:50→21:40)
[2018-03-07] MEDS: Lisinopril 20 MG TABLET PO SCH (07:50)
[2018-03-07] MEDS: Insulin DETEMIR 100 UNIT/ML X5UNITS SQ SCH ×2 (07:51→21:40)
[2018-03-07] MEDS: Insulin LISPRO 300 UNITS/3 ML VIAL SQ SCH ×4 (07:51→21:43)
[2018-03-07] MEDS: ZETIA 10MG PO SCH (08:01)
--- NOTE | 2018-03-07 08:02 | Event Note ---
Date of Encounter: 03/07/18 Time of Encounter: 08:00 - Cardiology Event Note Laboratory Tests 03/07/18 03/07/18 04:18 04:18 INR 1.0 Creatinine 0.58 L Est GFR (Non-Af Amer) > 60 Magnesium 1.9 CP free. Plan for [facility] today. All questions answered.
--- NOTE | 2018-03-07 10:08 | Internal Med Progress Note ---
<Astrid Villagran - Last Filed: 03/07/18 15:37> Hospitalist Progress Note - Encounter Date of Encounter: 03/07/18 - Exam Vitals: Temp Pulse Resp BP Pulse Ox 97.9 F 61 17 158/88 96 03/07/18 15:00 03/07/18 15:00 03/07/18 15:00 03/07/18 15:00 03/07/18 15:00 - Assessment and Plan (1) NSTEMI (non-ST elevated myocardial infarction) Current Visit: Yes Status: Acute (2) Hypertensive urgency Current Visit: Yes Status: Resolved (3) CAD (coronary artery disease) Current Visit: Yes Status: Chronic (4) DVT prophylaxis Current Visit: Yes Status: Acute (5) Diabetes Current Visit: Yes Status: Acute - Time Spent with Patient Total time spent is greater than 50% in coordination of care (as documented) at patient's floor/unit and/or counseling patient: Internal Medicine: Result - Labs CBC & Chem 7: 03/07/18 04:18 03/07/18 04:18 Labs: Short CBC 03/07/18 Range/Units 04:18 WBC 7.4 (4.3-11.1) K/mcL Hgb 15.6 (12.9-16.9) g/dL Hct 50.8 H (37.5-50.1) % Plt Count 229 (140-400) K/mcL Neutrophils # 4.8 (1.6-8.9) K/mcL BMP 03/07/18 04:18 Sodium 134 L Potassium 3.9 Chloride 103 Carbon Dioxide 23 BUN 15 Creatinine 0.58 L Glucose 260 H Calcium 8.6 - ABG Interpretation ABG results: PT/INR, D-dimer PT 11.1 Seconds (9.4-12.1) 03/07/18 04:18 Consult Discharge Plan - Plan Referrals: NONE,PCP [Primary Care Provider] - - Attending Attestation I examined this patient and my medical decision-making was reviewed with the Resident Physician Dr Yan. I agree with the documented findings, disposition and treatment plan as described except to the extent set forth below. PMHx DM, HTN, HLD, CAD s/p stent September 2017 Presented from [facility] with chest pain where he had ekg without acute ischemic changes, trop that has uptrended to 0.54 and where he had elevated bps with sbp >200. He was started on heparin gtt and caredene gtt and transferred to [facility] for further work up and treatment. Has been awaiting LHC done today. awake, npo awaiting cath, no cp, pressure, palpitations, sob. feeling baseline. family at bedside gen- alert, awake,appears stated age cv- reg rate and rhythm, normal s1,s2, no murmurs appreciated, no jvd, no le edema lungs- ctabl, no wheezing, rhonchi or crackles, normal resp effort on ra neuro- AAOx3 NSTEMI CAD Hx s/p PCI September 2017 HTN Emergency, resolved -asa, statin, zetia, plavix, hep gtt -hydralazine, lisinopril. metoprolol -cards following--[facility] 03/07 with occlusion mid LAD as per verbal report, some NSVTduring cath, cards offered transfer to tertiary center for eval and pt declined, preferring med management, imdur added, hep gtt dc, monitor overnight and cards re eval in am, post cath care -cardiac rehab consult placed by cards DM -resume home levemir, ssi vte ppx sq hep <Roel Yan - Last Filed: 03/07/18 16:39> Hospitalist Progress Note - Encounter Date of Encounter: 03/07/18 Time of Encounter: 10:07 - Subjective Interval History: Patient admitted for NSTEMI, seen by cardiology, plan for [facility] today, acute events overnight, patient denies chest pain or shortness of breath today. - Exam Vitals: Temp Pulse Resp BP Pulse Ox 97.7 F 72 18 148/79 100 03/07/18 07:23 03/07/18 08:00 03/07/18 07:23 03/07/18 07:23 03/07/18 07:23 Exam: gen- alert, awake,appears stated age eyes- pupils equal round cv- reg rate and rhythm, normal s1,s2, no murmurs appreciated, no jvd, mild 1+ p itting BLE edema lungs- ctabl, no wheezing, rhonchi or crackles, normal resp effort on ra abd- soft, non tender, non distended, + bs neuro- AAOx3, CN grossly intact - Assessment and Plan (1) NSTEMI (non-ST elevated myocardial infarction) Current Visit: Yes Status: Acute Assessment and Plan: NSTEMI CAD Hx s/p PCI September 2017 -asa, statin, zetia, plavix -hep gtt discontinued -hydralazine, lisinopril. metoprolol, norvasc -echo EF 60-65%, mild LVH, interminant diastolic dysfunction, no pulm htn, no valve disease -cardiac rehab consult placed by cardiology -[facility] 03/07 demonstrated 100% blockage mid LAD -patient refused transfer/PCI, will resume medical management, Imdur initiated -Patient will stay overnight, reassessment by cardiology in AM, possible discharge tomorrow (2) CAD (coronary artery disease) Current Visit: Yes Status: Chronic Assessment and Plan: see above (3) Hypertensive urgency Current Visit: Yes Status: Resolved Assessment and Plan: -hydralazine uptitrated, lisinopril. metoprolol, norvasc -weaned off cardene gtt 03/05 -cards following -cont to monitor, will require outpt fu - Blood pressure stable today (4) Diabetes Current Visit: Yes Status: Acute Assessment and Plan: [facility] complete, resume diet and 50 units BID Levemir SSI and PRN hypoglycemics (5) DVT prophylaxis Current Visit: Yes Status: Acute Assessment and Plan: subq heparin - Time Spent with Patient Total time spent is greater than 50% in coordination of care (as documented) at patient's floor/unit and/or counseling patient: Internal Medicine: Result - Labs CBC & Chem 7: 03/07/18 04:18 03/07/18 04:18 Labs: Short CBC 03/07/18 Range/Units 04:18 WBC 7.4 (4.3-11.1) K/mcL Hgb 15.6 (12.9-16.9) g/dL Hct 50.8 H (37.5-50.1) % Plt Count 229 (140-400) K/mcL Neutrophils # 4.8 (1.6-8.9) K/mcL BMP 03/07/18 04:18 Sodium 134 L Potassium 3.9 Chloride 103 Carbon Dioxide 23 BUN 15 Creatinine 0.58 L Glucose 260 H Calcium 8.6 - ABG Interpretation ABG results: PT/INR, D-dimer PT 11.1 Seconds (9.4-12.1) 03/07/18 04:18 <Astrid Villagran - Last Filed: 03/07/18 15:37> (3) CAD (coronary artery disease) Qualifiers: Coronary Disease-Associated Artery/Lesion type: [place] artery [place] vs. transplanted heart: [place] heart Associated angina: with unstable angina Qualified Code(s): I25.110 - Atherosclerotic heart disease of 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 artery [place] vs. transplanted heart: [place] heart Associated angina: with unstable angina Qualified Code(s): I25.110 - Atherosclerotic heart disease of 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
[2018-03-07] MEDS ORDERED: 0.9 % Sodium Chloride 1,000 ML ONE (11:27)
[2018-03-07] MEDS ORDERED: *HR* Midazolam HCl 2 MG/2 ML VIAL ONE (11:27)
[2018-03-07] MEDS ORDERED: *HR* FentaNYL (PF) 100 MCG/2 ML VIAL ONE (11:27)
--- NOTE | 2018-03-07 11:29 | Pre-Sedation Evaluation ---
Pre-sedation evaluation - Pre-sedation checklist Date of procedure: 03/07/18 Procedure: heart catherization Recent Vitals: Last Vital Signs Temp 97.7 F 03/07/18 07:23 Pulse 72 03/07/18 08:00 Resp 18 03/07/18 07:23 BP 148/79 03/07/18 07:23 Pulse Ox 100 03/07/18 07:23 H&P (including ROS) documented in medical record: Yes Previous reaction to sedatives/anesthetics: No Dietary Status: NPO after Midnight Dentition: No loose teeth or bridges ASA Classification *see protocol: CLASS II-Mild systemic disease Cardiac Registry (Cardio Only) - Functional Capacity Functional Capacity: >=4 METS with symptoms - Clincal Frailty Scale Clinical Frailty Scale: Managing Well
[2018-03-07] MEDS ORDERED: ISOVUE-370 200 ML INFUS..BTL ONE (12:02)
--- NOTE | 2018-03-07 13:09 | Invasive Diagnostic Lab Proc ---
Name: Kory Ontiveros Date of Study: 03/07/2018 Date: 1965 Ht: 72.0in Medical Record#: [id number] Age: 52 Wt: 326.28lb Gender: Male BSA: 2.62 Order #: [id number] BMI: 44.19 Physicians Procedure Physician: Kianna Mata MD Referring MD: Referring MD: Staff Name Position Time In Machelle Maradiaga RT (R) Scrub 11:28 AM James Murillo RN Monitor 11:28 AM Asif Eldridge RN Contract Negotiation Specialist 11:28 AM Indications Indication Non-Stemi Procedures Performed Procedure CORONARY ARTERY ANGIO S&I Pre-Procedure Checklist Informed consent is complete signed and on chart. H&P is on chart. ID band is on and ID verified with patient. Patient NPO for procedure The procedure was described for the patient and questions were answered. Blood Pressure: 148/79 ECG is on chart. Plan of Care Patient will tolerate the procedure without complications. Adequate level of comfort will be maintained. Hemodynamics will remain stable Patient will recover from procedure without complications. Respiratory function will be maintained. Cardiac rhythm will remain stable. Patient temperature will be maintained. Patient and/or family have verbalized understanding of the procedure. Patient Education Chief Complaint/Reason for Test: Cardiac Cath Developmental Category: Adult (18-64 years) Developmentally Appropriate for Age: Yes Learning Barriers: None Education Needs: Procedure Education Method: Verbal Information Taught: Cardiac Cath Educational Evaluation: Able to repeat information Intravenous Access Time IV Size Location DC'd Fluid/Drip Rate Units RN 20g 1 1/4" Patent On Arrival Rt Antecubital 20g 1 1/4" Patent On Arrival Lt Antecubital Allergies No Known Allergies Vital Signs Time BP (mmHg) HR (bpm) O2 Sat. RR (bpm) LOC 09:22 AM 148 / 79 72 100 % 16 11:30 AM / % 5 = Fully awake and oriented or at pre-proc level 11:30 AM / % 5 = Fully awake and oriented or at pre-proc level 11:45 AM / % 4 = Oriented but drowsy 12:00 PM / % 4 = Oriented but drowsy 12:15 PM / % 4 = Oriented but drowsy 11:26 AM 152 / 76 107 96 % 18 11:31 AM 142 / 64 67 99 % 17 11:36 AM 144 / 84 78 98 % 19 11:41 AM 142 / 76 67 98 % 17 11:46 AM 131 / 61 71 98 % 18 11:51 AM 143 / 60 68 97 % 12 11:56 AM 137 / 74 68 97 % 18 12:01 PM 145 / 94 70 97 % 19 12:06 PM 134 / 56 71 96 % 15 12:11 PM 113 / 45 49 97 % 15 12:16 PM 121 / 70 70 96 % 15 12:21 PM 125 / 43 75 96 % 18 12:26 PM 135 / 70 67 95 % 14 12:31 PM 103 / 41 65 97 % 16 12:37 PM 146 / 72 48 95 % 13 Procedural Medications Time Medication Dose Units Method Given By 11:30 AM Oxygen 2 L/min nasal cannula Asif Eldridge RN 11:30 AM Versed 1 mg Intravenous Asif Eldridge RN 11:30 AM Fentanyl 50 mcg Intravenous Asif Eldridge RN 11:42 AM Versed 0.5 mg Intravenous Asif Eldridge RN 11:42 AM Fentanyl 25 mcg Intravenous Asif Eldridge RN 11:44 AM Lidocaine 2% 20 ml Subcutaneous Kianna Mata MD 11:58 AM Heparin 5000 units Intravenous Asif Eldridge RN 12:08 PM Lidocaine 2% 10 ml Subcutaneous Kianna Mata MD 12:14 PM Heparin 1000 units Intravenous Asif Eldridge RN ASA Classification: CLASS II- Mild systemic disease (i.e. well-controlled diabetes, hypertension, asthma, cigarette smoking) Smiley Score Preprocedure Postprocedure Activity 2- Moves 4 extremities sustained head lift Activity 2- Moves 4 extremities sustained head lift Circulation 2- SBP +/= 20 points of pre-anesthetic level Circulation 2- SBP +/= 20 points of pre-anesthetic level Consciousness 2- Awake and alert oriented x 3 Consciousness 2- Awake and alert oriented x 3 O2 Saturation 2- Able to maintain O2 satruation of 92% on room air O2 Saturation 2- Able to maintain O2 satruation of 92% on room air Respiratory 2- Able to deep breathe and cough well Respiratory 2- Able to deep breathe and cough well Total Score 10 Total Score 10 Contrast Agent: Isovue Diagnostic Contrast: 232 ml Total Contrast: 232 ml Fluoro Dose: 44618 mGy Activated Clotting Time Time Seconds to Clot 12:13 PM 200 12:29 PM 199 Procedure Log Time Note Enter By 11:25 AM Vitals capture started with the following parameters, Patient=Adult, Interval=5 min, Initial Qyhjjmls=094 mmHg, Deflation Rate=5 mmHg, Cuff placed on Right Arm 11:25 AM Case Start 11: AM CathStat 11:25 AM Recorded ECG: HR=76 Condition=Condition 1 11:26 AM ZI=509 bpm, YVVL=027/76 mmhg, SpO2=96.0 %, Resp=18 B/min, EtCO2=36 mmHg 11:27 AM 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 well-controlled diabetes, hypertension, asthma, cigarette smoking) cedwards 11: AM Meet and greet completed cedwards 11:28 AM Sign in performed according to hospital policy. Informed consent was obtained. cedwards 11:28 AM Procedure start : cedwards 11:28 AM Patient charges- Angio tray pack, Navilyst 3mm J, Pulse Oximetry and ACIST tubing and transducer cedwards 11: AM Machelle Maradiaga RT (R) Position: Scrub Time in: :28 ced[place] 11:28 AM James Murillo RN Position: Monitor Time in: :28 ced[place] 11: AM Asif Eldridge RN Position: Contract Negotiation Specialist Time in: :28 cedwards 11:28 AM IV Supplies used: J loop Angio Cath. cedwards 11:29 AM Time: 11:29 Patient comfortable and pain free: Yes cedwards 11:30 AM Time: 30LOC: 5 = Fully awake and oriented or at pre-proc level cedwards 11: AM Time: 11:30 Oxygen on at 2 L/min per nasal cannula by Asif Eldridge RN ced[place] 11:30 AM Time: 11:30 Versed 1 mg Intravenous Given by Asif Eldridge RN c[place] 11:30 AM Time: 11:30 Fentanyl 50 mcg Intravenous Given by Asif Eldridge RN c[place] 11:31 AM HR=67 bpm, IUXT=590/64 mmhg, SpO2=99.0 %, Resp=17 B/min, EtCO2=41 mmHg, Comment=NSR 11:36 AM HR=78 bpm, TPVE=870/84 mmhg, SpO2=98.0 %, Resp=19 B/min, EtCO2=42 mmHg, Comment=NSR 11:41 AM HR=67 bpm, OXHA=070/76 mmhg, SpO2=98.0 %, Resp=17 B/min, EtCO2=41 mmHg, Comment=NSR 11: AM Time: 11:42 Versed 0.5 mg Intravenous Given by Asif Eldridge RN cedwards : AM Time: 11:42 Fentanyl 25 mcg Intravenous Given by Asif Eldridge RN cedwards 11:44 AM Clinical Presentation: Non-STEMI cedwards 11:44 AM Time out was performed according to hospital policy. Conscious sedation and anesthesia was achieved (see medication log with in this report above) cedwards :45 AM Time: :44 20 ml Lidocaine 2% to right groin Subcutaneous Given by Kianna Mata MD cedwards :45 AM Time: 11:30LOC: 5 = Fully awake and oriented or at pre-proc level cedwards 11:45 AM Time: 11:29 Patient comfortable and pain free: Yes cedwards 11:46 AM HR=71 bpm, ZURU=673/61 mmhg, SpO2=98.0 %, Resp=18 B/min, EtCO2=40 mmHg, Comment=NSR 11:47 AM Micro-Introducer Kit utilized for sheath placement cedwards 11:47 AM Access obtained by percutaneous puncture. 6Fr 10cm Terumo Kaleva sheath placed in right Femoral artery. [id number] cedwards 11:47 AM Femoral Angio 3 mL of contrast cedwards 11:49 AM 5Fr FR 4 catheter inserted over the wire [facility] cedwards 11:49 AM Recorded Pressure: Ao, HR=54, Condition=Condition 1 (Aorta) Ao 143/86/108 11:50 AM RCA angiography performed in multiple views. cedwards 11:50 AM 0.035 145cm Navilyst 3mmJ wire [id number] cedwards 11:50 AM Catheter removed cedwards 11:51 AM 6Fr XB LAD 3.5 Cordis guide catheter was used to cannulate the PCI vessel successfully. reused? No cedwards 11:51 AM HR=68 bpm, GBHC=109/60 mmhg, SpO2=97.0 %, Resp=12 B/min, EtCO2=42 mmHg, Comment=NSR 11:52 AM LCA angiography performed in multiple views. cedwards 11:53 AM Coronary Dominance: Left cedwards 11:56 AM HR=68 bpm, JIYB=874/74 mmhg, SpO2=97.0 %, Resp=18 B/min, EtCO2=46 mmHg, Comment=NSR 11:58 AM Time: 11:58 Heparin 5000 units Intravenous Given by Asif Eldridge RN cedwards 12:00 PM .014 [employer] [place] 190cm guide wire across target lesion- successful. reused? No cedwards 12:00 PM Lesion found in Mid LAD. Pre Stenosis: 100 Pre KEYANNA Flow: 0: No Flow/No perfusion cedwards 12:00 PM Time: 11:45 Patient comfortable and pain free: Yes cedwards 12:00 PM Time: 11:45LOC: 4 = Oriented but drowsy cedwards 12:00 PM Recorded Pressure: Ao, HR=69, Condition=Condition 1 (Aorta) Ao 168/93/122 12:01 PM HR=70 bpm, IFPL=475/94 mmhg, SpO2=97.0 %, Resp=19 B/min, EtCO2=45 mmHg, Comment=NSR 12:03 PM Inflation device was opened. cedwards 12:04 PM Recorded Pressure: Ao, HR=70, Condition=Condition 1 (Aorta) Ao 156/90/117 12:06 PM HR=71 bpm, BXQM=276/56 mmhg, SpO2=96.0 %, Resp=15 B/min, Apnea=43 Seconds, Comment=NSR 12:08 PM Time: 12:08 10 ml Lidocaine 2% to left groin Subcutaneous Given by Kianna Mata MD cedwards 12:08 PM Access obtained by percutaneous puncture. 5Fr 10cm Terumo Kaleva sheath placed in left Femoral artery. [id number] cedwards 12:09 PM Recorded Pressure: Ao, HR=70, Condition=Condition 1 (Aorta) Ao 144/83/110 12:10 PM Femoral Angio performed of left groin with 2 mL of contrast cedwards 12:11 PM HR=49 bpm, OEQS=898/45 mmhg, SpO2=97.0 %, Resp=15 B/min, EtCO2=41 mmHg, Comment=NSR 12:11 PM Recorded Pressure: Ao, HR=61, Condition=Condition 1 (Aorta) Ao 133/75/100 12:12 PM Fr4 diagnostic catheter placed through left groin while XBLAD is still in place engaged in LAD through right groin cedwards 12:13 PM At 12:13 the ACT was 200 seconds. cedwards 12:14 PM Time: 12:14 Heparin 1000 units Intravenous Given by Asif Eldridge RN cedwards 12:15 PM Simultaneous Angiography of RCA and LCA, 15 mL of contrast used cedwards 12:15 PM Time: 12:00 Patient comfortable and pain free: Yes cedwards 12:16 PM HR=70 bpm, UFCC=382/70 mmhg, SpO2=96.0 %, Resp=15 B/min, EtCO2=44 mmHg, Comment=NSR 12:17 PM FR4 Catheter removed cedwards 12:17 PM Recorded Pressure: Ao, HR=68, Condition=Condition 1 (Aorta) Ao 156/91/118 12:18 PM BMW Guide wire removed intact. Unable to pass cedwards 12:19 PM .014 [place] 190cm guide wire across target lesion- successful. reused? No cedwards 12:21 PM HR=75 bpm, QLOU=713/43 mmhg, SpO2=96.0 %, Resp=18 B/min, EtCO2=38 mmHg, Comment=NSR 12:21 PM Recorded Pressure: Ao, HR=65, Condition=Condition 1 (Aorta) Ao 141/84/109 12:22 PM Whisper wire unable to cross cedwards 12:25 PM Guide catheter removed intact. cedwards 12:26 PM HR=67 bpm, MTCE=228/70 mmhg, SpO2=95.0 %, Resp=14 B/min, EtCO2=40 mmHg, Comment=NSR 12:28 PM Procedure completed at 12:28 03/07/2018 cedwards 12:28 PM Did you address KEYANNA flow and Dominance? Yes cedwards 12:29 PM Sign out completed: Radiation Dose 1775.21 mGy, 17272 cGy/cm2 Fluoro Time: 10.5 Isovue 370 - 200ml contrast 232 ml given by Kianna Mata MD. Complications: None. 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 Cardiac Rehab Consult needed: YesConfirmed administered medications: Yes cedwards 12:29 PM At 12:29 the ACT was 199 seconds. cedwards 12:29 PM Isovue 370 - 200ml,2 Bottle(s) used. cedwards 12:29 PM Sheath left in place to be pulled on floor/holding areaV+Pad cedwards 12:30 PM Sheath left in place on left side (5 German) to be pulled on floor/holding areaV+Pad cedwards 12:30 PM Time: 12:15LOC: 4 = Oriented but drowsy cedwards 12:31 PM Arterial sheath pulled, Mynx closure device used and was Successful [id number] Right groin S/N. cedwards 12:31 PM HR=65 bpm, LIDC=542/41 mmhg, SpO2=97.0 %, Resp=16 B/min, Comment=NSR 12:32 PM Estimated Blood Loss: minimal cedwards 12:32 PM Post ECG NSR cedwards 12:32 PM Post Blood Pressure 103/41 cedwards 12:32 PM Information taught Cardiac Cath and Mynx cedwards 12:32 PM Education needs Procedure, Plan of Care, and Disease Process cedwards 12:32 PM Learning barriers :None cedwards 12:32 PM Education Methods Verbal cedwards 12:32 PM Education evaluation Able to repeat information cedwards 12:32 PM Site status No bleeding/hematoma - Rt Groin as reported by Meron Mata MD at 12:32 cedwards 12:34 PM Site status No bleeding/hematoma - Lt Groin (5 German sheath still in) as reported by Machelle Maradiaga RT (R) at 12:34 cedwards 12:35 PM Plavix, Effient or Brilinta given No cedwards 12:35 PM Family placed in consult room. cedwards 12:35 PM Complications: None cedwards 12:37 PM HR=48 bpm, RVCP=200/72 mmhg, SpO2=95.0 %, Resp=13 B/min, EtCO2=41 mmHg, Comment=NSR 12:42 PM Report given to Pavel RN Pt taken to 2N Room #15. 12:42 cedwards 12:44 PM 12:44 Post Pulses Bilateral DP 2+ cedwards 12:44 PM 12:44 Post Pulses Bilateral radial 2+ cedwards 12:50 PM Patient out of room: 12:50 cedwards 12:55 PM Lesion found in Mid RCA. Pre Stenosis: 50 Pre KEYANNA Flow: cedwards 12:56 PM Lesion found in Proximal LAD. Pre Stenosis: 20 Pre KEYANNA Flow: cedwards Complications Complication None None Hemodynamics Pressures Site Systolic/A Wave Diastolic/V Wave Mean AO 143 86 108 AO 168 93 122 AO 156 90 117 AO 144 83 110 AO 133 75 100 AO 156 91 118 AO 141 84 109 Post Procedure Information Blood Pressure: 103/41 mmHg Rhythm: NSR Post procedural instructions were given Closure Device Time Device Success/Fail 03/07/2018 12:42:00 PM MynxGrip Successful Site Checks Time Location Status Staff Sheath In? Note 12:32 PM Rt Groin No bleeding/hematoma Meron Mata MD No 12:34 PM Lt Groin No bleeding/hematoma Machelle Maradiaga RT (R) Yes 5 Fr Pulses Time Site Pre-Procedure Post-Procedure Note 03/07/2018 9:22:00 AM Bilateral DP & PT 2+ 03/07/2018 9:22:00 AM Bilateral radial 2+ 12:44:00 PM Bilateral DP 2+ 12:44:00 PM Bilateral radial 2+ Updated by James Murillo RN on 03/07/2018 1:02:52 PM electronically signed on 03/07/2018 1:03:58 PM with status of Final
--- NOTE | 2018-03-07 14:39 | Electrocardiograph Report ---
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
[2018-03-07] MEDS ORDERED: Acetaminophen 325 MG TABLET PO PRN (15:15)
--- NOTE | 2018-03-07 15:17 | Event Note ---
Date of Encounter: 03/07/18 Time of Encounter: 15:15 - Cardiology Event Note Discussed with Dr. 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 Patient apparently was provided option of transfer to tertiary center for eval and has elected medical management. Will DC IV Hep gtt now. Adding Imdur. Will monitor overnight and e keesha in am. Had few short episodes NSVT during LHC per Dr. Mata.
[2018-03-07] MEDS: *HR* Heparin 5,000 UNIT/ML VIAL SQ SCH (21:40)
[2018-03-08 04:46] LABS: Hematocrit 46.9 % (37.5-50.1); Hemoglobin 14.4 g/dL (12.9-16.9); Immature Granulocytes % 0.3 % (0-4); Mean Corpuscular HGB Conc 30.7 g/dL (31.6-35.5); Mean Corpuscular Hemoglobin 24.8 pg (28.0-33.3); Mean Corpuscular Volume 80.9 fL (83.0-100.0); Platelet Count 219 K/mcL (140-400); Red Cell Distribution Width 14.8 % (11.5-14.5)
[2018-03-08 04:47] LABS: Basophils # 0.1 K/mcL (0.0-0.2); Basophils % 0.5 %; Eosinophils # 0.1 K/mcL (0.0-0.6); Eosinophils % 0.9 %; Lymphocytes # 1.6 K/mcL (0.6-4.6); Monocytes # 0.6 K/mcL (0.0-1.3); Monocytes % 6.3 %; Neutrophils # 7.8 K/mcL (1.6-8.9)
[2018-03-08 05:05] LABS: BUN/Creatinine Ratio 25 (6-26); Blood Urea Nitrogen 16 mg/dL (6-20); Calcium 8.7 mg/dL (8.6-10.3); Carbon Dioxide 26 mEq/L (23-29); Chloride 103 mEq/L (98-107); Glucose 264 mg/dL (70-105); Osmolality,Calculated 290 (280-300); Potassium 3.9 mEq/L (3.5-5.1); Sodium 135 mEq/L (136-145); eGFR For Non-African Americans > 60 (> 60)
[2018-03-08] MEDS: *HR* Heparin 5,000 UNIT/ML VIAL SQ SCH ×2 (05:58→14:07)
[2018-03-08] MEDS: hydrALAZINE 25 MG TABLET PO SCH ×2 (05:58→14:07)
[2018-03-08] MEDS: Aspirin 81 MG TAB.CHEW PO SCH (07:21)
[2018-03-08] MEDS: Lisinopril 20 MG TABLET PO SCH (07:21)
[2018-03-08] MEDS: Gabapentin 300 MG CAPSULE PO SCH (07:21)
[2018-03-08] MEDS: Insulin DETEMIR 100 UNIT/ML X5UNITS SQ SCH (07:22)
[2018-03-08] MEDS: ZETIA 10MG PO SCH (07:22)
[2018-03-08] MEDS: Insulin LISPRO 300 UNITS/3 ML VIAL SQ SCH ×3 (07:30→16:50)
[2018-03-08] MEDS ORDERED: Isosorbide MONOnitrate (24 HR) 30 MG TAB.ER.24H PO SCH (09:00)
--- NOTE | 2018-03-08 09:22 | Cardiology Progress Note ---
Date of Encounter: 03/08/18 Time of Encounter: 09:15 Assessment and Plan (1) Hypertensive urgency Current Visit: Yes Status: Resolved Per Cardiology: Currently in the 140s. We will optimize beta lilli. (2) NSTEMI (non-ST elevated myocardial infarction) Current Visit: Yes Status: Acute Per Cardiology: Previous [facility] September 2017: Lesion Findings/Interventions * Left Main Coronary Artery The LMCA is angiographically free of disease. * Left Anterior Descending There is a 20-30% stenosis in the Proximal LAD, mid LAD 40-50% * Circumflex There is a 20% stenosis in the 1st Marginal. There is a 28 mm long, 80-90% stenosis in the Left PDA. The lesion has a KEYANNA flow of 3. An intervention was performed on the Left PDA with a final stenosis of 0%. There were no lesion complications. The final KEYANNA flow was 3. * Right Coronary Artery The Right Coronary Artery is small and diffusely diseased. NSTEMI: Troponin peak 1.40-- now downward trend. Echo showed preserved EF. S/p [facility]: Indications: Non-Stemi ACS <= 24 hrs Impressions: There is severe one vessel coronary artery disease. SLATE TRIMMER of the mid LAD Complex PCI Vs medical management Vs CABG Lesion Findings/Interventions * Left Main Coronary Artery The LMCA is angiographically free of disease. * Left Anterior Descending There is a 20% stenosis in the Proximal LAD. There is a 100% stenosis in the Mid LAD. The lesion has a KEYANNA flow of 0 and has no thrombus present. The LAD is receiving collaterals from the nondominant RCA. * Circumflex The Circumflex is angiographically free of disease. The 1st Marginal is angiographically free of disease. The Left PDA has patent stents. * Right Coronary Artery There is a 50% stenosis in the Mid RCA. Currently chest pain-free. A few episodes of nonsustained VT longest being 4 beats noted on telemetry. We will titrate beta lilli. Currently on aspirin, Plavix, statin, beta lilli, LELAND inhibitor, and long-acting nitrate. Noted to have frequent PVCs on tele. Patient reviewed and discussed with Dr. Rose and Dr. Tamika Aguilar, patient seen with Dr. Rose, lengthy discussion with patient regarding medical management versus transfer to tertiary center for further evaluation of SLATE TRIMMER of LAD. Patient and family preferred to transfer to [facility] for further recommendations and evaluation. Discussed with primary service. Cardiology sign off, re-consult as needed, follow-up arranged for reevaluation after [facility] evaluation. Discussion w patient/family: The assessment and plan as outlined above was discussed with the patient who expressed understanding and agreement. All questions were answered. Thank you for involving us in the care of your patient. Please call with any questions. Subjective Principal diagnosis: NSTEMI Interval history: Denies any chest pain, shortness of breath, palpitations. Denies any active bleeding or blood loss. No concerns or complaints today. Objective Vital Signs, Last 4 Hours Temp Pulse Pulse Pulse Resp BP Pulse Ox 03/08/18 07:00 98.4 F 77 73 73 17 144/78 97 General: Conversant, No Apparent Distress HEENT: Atraumatic, Normocephaly, Mucus Membranes Moist Neck: No JVD, Normal carotid pulses Cardiac: Reg Rate and Rhythm, Normal S1 and S2, No Murmur Lungs: Normal Breath Sounds, No Wheeze, Rales, Rhonchi Neuro: Alert and responsive, No focal deficits noted Abdomen: Soft, Non-Tender Skin: No rashes noted on visualized skin, Other (Right and left groin site dry and intact, no bleeding, no ecchymosis, no hematoma, right and left PT and DP pulses 2+ palpable) Musculoskeletal: No Chest Wall Tenderness Extremities: No Clubbing, No Cyanosis, No Edema, Normal Pulses Results 03/08/18 04:16 03/08/18 04:16 Lab Results - Imaging and Cardiology Cardiac cath: report reviewed - EKG Interpretation EKG results cardiology: other (Telemetry reviewed with average heart rate is 12/69, sinus rhythm, 3 episodes of nonsustained VT longest being 4 beats and a few other episodes of 3 beats.) Consult Discharge Plan - Plan Referrals: NONE,PCP [Primary Care Provider] -
--- NOTE | 2018-03-08 15:14 | Discharge Summary ---
- NOTES TO OUTPATIENT PROVIDER Notes to Outpatient Provider: Pt presented with NSTEMI. LHC done and has occlusion of mid LAD. Transferred to [facility] for further evaluation. Date of Encounter: 03/08/18 Time of Encounter: 09:30 - Discharge Diagnosis (1) CAD (coronary artery disease) Priority: Secondary Status: Chronic Qualifiers: Coronary Disease-Associated Artery/Lesion type: [place] artery [place] vs. 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 Ontiveros is a 52 year old male with hx of DM and CAD transferred from [facility] due to chest pain. Mr Ontiveros was admitted to [facility]. His troponin increased. His blood pressure was markedly uncontrolled initially. He was evaluated by cardiology and had LHC on 03/07. He was found to have total occlusion of mid LAD (was 40-50% in 09/20). He continues to have frequent PVCs and brief runs of NSVT. It was felt that he should have further evaluation for this lesion and is to be transferred to [facility] today. Discharge discussed with: patient - Time Spent with Patient Total time spent providing and/or coordinating discharge services: 42min - Discharge Medications Home Medications: Aspirin 81 mg PO DAILY 09/15/17 [History] Atorvastatin [Lipitor] 40 mg PO HS 09/15/17 [History] Clopidogrel Bisulfate [Plavix] 75 mg PO DAILY #30 tablet 09/15/17 [Rx] Cyclobenzaprine HCl 10 mg PO HS 09/15/17 [History] Ezetimibe [Zetia] 10 mg PO DAILY 09/15/17 [History] Gabapentin [Neurontin] 300 mg PO BID 09/15/17 [History] Lisinopril [Zestril] 40 mg PO DAILY 09/15/17 [History] Acetaminophen [Tylenol] 650 mg PO Q6HR PRN tablet 03/08/18 [Rx] Insulin DETEMIR [Levemir] 50 unit SQ BID [id number] 03/08/18 [Rx] Isosorbide MONOnitrate (24 HR) [Imdur] 30 mg PO DAILY tab.er.24h 03/08/18 [Rx] Metoprolol [Lopressor] 75 mg PO BID tablet 03/08/18 [Rx] hydrALAZINE [HydrALAZINE] 50 mg PO Q8H tablet 03/08/18 [Rx] Allergies/Adverse Reactions: Allergy/AdvReac Type Severity Reaction Status Date / Time No Known Allergies Allergy Verified 03/04/15 11:56 Date of admission: 03/05/18 06:27 Primary care physician: PCP NONE Consults: 03/05/18 02:57 Consult to Cardiology [CONS] Routine Comment: Consulting Provider: Cardiology Zahra Reason for Consult: chest pain Call Completed: No 03/05/18 09:02 Consult to Cardiac Rehabilitation-Phase1 [CONS] Routine Comment: Reason for Consult: NSTEMI Call Completed: No Discharging clinician: Tristan Dunn Anticipated date of discharge: 03/08/18 - Constitutional Vitals: Temp Pulse Resp BP Pulse Ox 98.1 F 78 18 134/73 97 03/08/18 11:04 03/08/18 11:04 03/08/18 11:04 03/08/18 11:00 03/08/18 11:04 General appearance: Present: A&O X 3, pleasant, answers questions appropriately Exam: See below - Head Head exam: Present: normocephalic - Eye Eye exam: Present: EOMI, conjuntiva pink - ENT ENT exam: Present: mucous membranes moist - Respiratory Respiratory exam: Present: decreased breath sounds, CTAB. Absent: rales, rhonchi, wheezes - Cardiovascular Cardiovascular exam: Present: bradycardia, irregular rhythm Additional comments: Frequent ectopy on monitor. - GI/Abdominal GI/Abdominal exam: Present: soft. Absent: tenderness - Extremities Exam Extremities exam: Present: warm. Absent: tenderness - Neurological Exam Neurological exam: Present: alert, oriented X3, no focal deficits - Skin Skin exam: Present: dry, warm - Patient Status Disposition: Transfer Short-Term Hosp Condition: Good Functional capacity at discharge: independent ambulation Overall status at discharge: patient is progressing back to baseline - Discharge Instructions Follow Up With: NONE,PCP [Primary Care Provider] - - Diet and Activity Activity: increase activity as tolerated Diet: advance to your usual diet
[2018-03-08 16:13] VITALS: BP 128/74
== END 2018-03-08 17:45 | disposition short-term general hospital (02) | DRG 281 ==
LOC: ICNU → SUATTDRO 03-05 06:27 → 2NNU 03-05 14:30
PROVIDERS: ADMIT Family Medicine; ATTEND Internal Medicine

== ENCOUNTER 2020-06-10 20:06 | Observation (INO) ==
[2020-06-11] MEDS ORDERED: Acetaminophen 325 MG TABLET PO PRN (01:21)
[2020-06-11] MEDS ORDERED: Naloxone 0.4 MG/ML INJ IVP PRN (01:21)
[2020-06-11] MEDS ORDERED: Ondansetron 4 MG/2 ML VIAL IVP PRN (01:21)
[2020-06-11] MEDS ORDERED: Melatonin 3 MG TABLET PO PRN (01:21)
[2020-06-11 03:02] LABS: Basophils % 0.6 %; Eosinophils # 0.1 K/mcL (0.0-0.6); Eosinophils % 1.5 %; Hematocrit 44.5 % (37.5-50.1); Hemoglobin 13.8 g/dL (12.9-16.9); Immature Granulocytes % 0.2 % (0-4); Lymphocytes # 1.1 K/mcL (0.6-4.6); Lymphocytes % 20.4 %; Mean Corpuscular Hemoglobin 25.5 pg (28.0-33.3); Mean Corpuscular Volume 82.3 fL (83.0-100.0); Mean Platelet Volume 11.7 fL (9.4-12.4); Monocytes # 0.9 K/mcL (0.0-1.3); Monocytes % 17.1 %; Neutrophils # 3.1 K/mcL (1.6-8.9); Platelet Count 186 K/mcL (140-400); Red Blood Count 5.41 M/mcL (4.19-5.50); Red Cell Distribution Width 16.4 % (11.5-14.5); Segmented Neutrophils % 60.2 %; White Blood Count 5.2 K/mcL (4.3-11.1)
[2020-06-11 03:13] LABS: INR 1.1; Prothrombin Time 13.2 Seconds (9.4-12.1)
[2020-06-11 03:22] LABS: Alanine Aminotransferase 31 Units/L (7-52); Albumin 3.9 g/dL (3.5-5.7); Albumin/Globulin Ratio 1.2 (1.1-2.2); Alkaline Phosphatase 151 Units/L (34-104); Aspartate Amino Transferase 32 Units/L (13-39); BUN/Creatinine Ratio 25 (6-26); Bilirubin,Total 0.6 mg/dL (0.3-1.0); Blood Urea Nitrogen 15 mg/dL (6-20); Calcium 9.1 mg/dL (8.6-10.3); Carbon Dioxide 24 mEq/L (23-29); Chloride 103 mEq/L (98-107); Globulin 3.3 g/dL (2.4-3.5); Glucose 151 mg/dL (70-105); Magnesium 1.7 mg/dL (1.6-2.6); Osmolality,Calculated 288 (280-300); Phosphorous 4.2 mg/dL (2.7-4.5); Potassium 3.7 mEq/L (3.5-5.1); Sodium 137 mEq/L (136-145); Total Protein 7.2 g/dL (6.4-8.9); eGFR For African Americans > 60 (> 60); eGFR For Non-African Americans > 60 (> 60)
[2020-06-11] MEDS ORDERED: D5% in Water 1,000 ML IVC PRN (03:26)
[2020-06-11] MEDS ORDERED: *HR* Dextrose 50 % in Water (Vial) 50 ML VIAL IVP PRN (03:26)
[2020-06-11] MEDS ORDERED: Dextrose Gel 15 GM/37.5 ML TUBE PO PRN ×2 (03:26)
[2020-06-11] MEDS: Insulin LISPRO 300 UNITS/3 ML VIAL SUBQ SCH ×2 (05:11→11:42)
[2020-06-11] MEDS ORDERED: Perflutren Lipid Microsphere 1.3 ML in 0.9 % Sodium Chloride 8.7 ML IVP PRN (07:31)
[2020-06-11 11:43] VITALS: BP 143/75
[2020-06-11] MEDS ORDERED: *HR* Heparin 5,000 UNIT/ML VIAL SQ SCH (18:00)
== END 2020-06-11 12:57 | disposition home or self-care (01) ==
LOC: 3BNU
PROVIDERS: ADMIT Family Medicine; ATTEND Family Medicine